=== PATIENT | male | born 1990 | race Caucasian/White ===

== ENCOUNTER 2017-11-04 08:47 | Emergency (ER) | payer OTHER ==
[2017-11-04] MEDS: NALOXONE (0.4 MG/ML) INJ IV (09:09)
[2017-11-04] MEDS: SOD CHLORIDE 0.9% 1,000 ML IV (09:09)
[2017-11-04] MEDS: NALOXONE 2 MG SYG IV (09:09)
== END 2017-11-04 10:57 | disposition home or self-care (01) ==
LOC: E/R 08:47
DX: T40.1X1A Poisoning by heroin, accidental (unintentional), initial encounter (principal); F17.210 Nicotine dependence, cigarettes, uncomplicated; R40.2112 Coma scale, eyes open, never, at arrival to emergency department; R40.2212 Coma scale, best verbal response, none, at arrival to emergency department; R40.2342 Coma scale, best motor response, flexion withdrawal, at arrival to emergency department
CPT/HCPCS: 93005; 96374; 99291-25